=== PATIENT | male | born 1945 ===

== ENCOUNTER 2025-08-24 11:59 | Outpatient (AMB) | payer MEDICARE, OTHER, SELFPAY ==
--- NOTE | 2025-08-24 12:17 | A.OFFVIS_ITS ---
Intake Visit Reasons: 6m Allergies No Known Allergies Allergy (Verified 08/24/25 12:23) Medication List - Last Reconciled 08/24/25 by Shelly Saldana CNP allopurinol 100 mg PO DAILY folic acid 1 mg PO DAILY furosemide 20 mg PO DAILY gabapentin 300 mg PO TID gabapentin 600 mg PO TID metformin 500 mg PO BID simvastatin 20 mg PO BEDTIME HPI Comments Details: Has numbness and tingling in both legs past knees. Walking with walker, had fall about 3 weeks ago without injury. He was taking gabapentin 900mg three times a day. Ongoing hand tremors, L > R. He noticed tremors more often at night. No functional impairment, but were bothersome. No difficulty eating, drinking, or swallowing. He was on primidone in the past, but it was unclear why medication was stopped. He did not remember if medication helped. He has some trouble standing up from chairs and turning in bed. Limited ROM to L shoulder, following with orthopedics and getting injection which helps some. Numbness and tingling to legs and feet. Feet feel like wooden blocks. Balance worse at times, feet feel like wood, and does not feel the floor. Left hand tremors. His balance is worse He has a history of diabetes for 15+ years under good control who was diagnosed with neuropathy in his lower extremities and started on gabapentin 300 mg 3 times a day with some relief. He was still uncomfortable in his feet and legs with numbness, tingling, swelling, and balance is off. He has had balance problems and multiple falls. 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 Has pain in the feet 5/10. Tremors in hands, primarily on left?interfering with eating and drinking since 07/02.024 [facility] Medical History (Updated 08/24/25 @ 12:31 by Shelly Saldana CNP) Cervical stenosis of spine Hyperlipidemia Gout Diabetes Afib Essential tremor Surgical History (Updated 08/24/25 @ 12:20 by Shelly Saldana CNP) Status post total right knee replacement History of carpal tunnel surgery of right wrist S/P cardiac pacemaker procedure Review of Systems Const Denies chills, Denies daytime sleepiness, Denies difficulty sleeping, Denies fatigue, Denies fever(s), Denies frequent falls, Denies headache(s), Denies increased appetite, Denies poor appetite, Denies snoring, Denies weakness, Denies weight gain and Denies weight loss Eyes Denies loss of vision ENT Denies vertigo, Reports dizziness, Denies headache(s) and Denies neck pain Card Denies chest pain at rest, Denies chest pain with activity, Denies syncope, Denies leg edema, Denies palpitations, Denies dyspnea and Denies dyspnea on exertion Resp Denies cough, Denies dyspnea, Denies dyspnea on exertion and Denies snoring GI Denies abdominal pain, Denies constipation, Denies heartburn, Denies diarrhea and Denies nausea Denies urinary frequency, Denies urinary incontinence and Denies urinary urgency Musc Reports abnormal gait (balance difficulty), Reports back pain, Reports myalgias, Reports arthralgias, Denies neck pain, Reports numbness and Reports tingling Neuro Reports abnormal gait (balance difficulty), Denies vertigo, Reports dizziness, Denies syncope, Denies frequent falls, Denies headache(s), Denies lack of coordination, Denies loss of vision, Denies memory loss, Reports numbness, Denies Other visual disturbances, Denies restless legs, Denies seizure-like activity, Reports tingling, Denies paresthesias, Denies tremor(s) and Denies weakness Psych Denies anxiety, Denies depression, Denies auditory hallucinations, Denies memory loss and Denies visual hallucinations Endo Denies fatigue and Denies palpitations Physical Exam Const Other: General Appearance:? normal, in no acute distress. Heart:? S1, S2 normal, no murmurs. Lungs:? clear anteriorly and posteriorly. Musculoskeletal:? normal. Extremities:? no edema. Psych:? alert, oriented, cognitive function intact, cooperative with exam. Neuro Other: Abnormal Neurological Findings: Ataxic broad based gait with walker. Areflexia, absent vibration below ankle. Absent pinprick below mid mosquera. Right shoulder abduction weakness 4+/5. Limited left shoulder abduction. Mild tremor of hands on outstretched position. Mental Status: alert and oriented X 3. Normal attention, orientation, memory, and affect. Cranial Nerves: Pupils are equal, round, and reactive to light. External ocular muscles are intact. Visual sam are full, no ptosis. Face is symmetrical, no facial weakness or droop. Facial sensations are normal. Tongue protrudes in mid line. Palate elevates symmetrically. Shoulder shrugging is normal Motor Examination: As above, DTR 0+. Plantars are flexor. Sensory Exam: As above. Coordination: No ataxia. No titubation. Gait Exam: As above. Cerebellar Signs: [id number] is okay. Extrapyramidal System: Tremor as above. No rigidity with normal facial expressions. No bradykinesia. No bradyphrenia. Normal arm swing and posture. No propulsion or retropulsion. Speech: Normal. Results Reviewed Results Reviewed: 12/25/22 NCV/EMG Severe end stage right Carpal tunnel syndrome and a moderate left Carpal tunnel syndrome in the upper extremities. EMG of the right C7-T1 innervateed muscles shows no activity in the right APB muscle. Severe axonal sensory and motor peripheral neuropathy in the lower extremities. EMG of the left L4-S1 innervated muscles is consistent with neuropathic changes. 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 Control blood sugar, continue to use walker. 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 (3) Essential tremor: Code(s): G25.0 - Essential tremor Category: Medical Plan: Start primidone 50mg 1 tablet at bedtime, use/side effects reviewed. Follow up in 2 months or sooner as needed. Medications: New primidone 50 mg PO BEDTIME 90 tabs 0RF 90 days Coding Level of Care Code Est Pt Level 4 (03839) Diagnoses Diabetic polyneuropathy associated with type 2 diabetes mellitus E11.42 Diabetes mellitus type: type 2 Diabetes mellitus complication detail: diabetic polyneuropathy Cerebellar ataxia G11.9 Essential tremor G25.0
--- OUTSIDE RECORDS SUMMARY | 2025-08-24 15:58 | XMS_ITS | Encounter Summary ---
Author Organization [facility] [place] [address] Care Team Providers Care Solutions Engineer Name Role Phone Tyrel Drummond MD Primary Care Provider [phone] Encounter Details Date Type Department Care Team (Late Contact Info) Description 08/03/2025 Results Follow-Up Adult Medicine [address] [phone] Nereida Marnielli [employer] [address] [place], [place] Social History Tobacco Use Types Packs/Day Years Used Date Smoking Tobacco: Never Smokeless Tobacco: Never Alcohol Use Standard Drinks/Week Comments Yes 0 (1 standard drink = 0.6 oz pur e alcohol) Transportation Answer Date Recorded Has the lack of transportati on kept you from meetings, work, or from getting things needed for daily living? No Has the lack of transportati on kept you from medical appointments or from getting medications? No 01/12/2025 Sex and Gender Information Value Date Recorded Sex Assigned at Not on file Legal Sex Male 7:42 AM EST Gender Identity Not on file Sexual Orientation Not on file documented as of this encounter Plan of Treatment Upcoming Encounters Date Type Department Care Team (Late Contact Info) Description 09/14/2025 1:15 PM EST Office Visit Adult Medicine [address] [phone] Tyrel Drummond MD [address] [place], [place] documented as of this encounter Visit Diagnoses Not on filedocumented in this encounter Care Teams Solutions Engineer Relationship Specialty Start Date End Date Tyrel Drummond MD [address] [place] [address] PCP - General Internal Medicine 08/20/24 documented as of this encounter
--- OUTSIDE RECORDS SUMMARY | 2025-08-24 15:58 | XMS_ITS | Clinical Summary ---
Author Organization [facility] [address] [place] [address] [place] [phone] Phone Care Team Providers Care Poultry Killer Name Role Phone Tyrel Drummond MD Primary Care Provider [phone] Allergies Active Allergy Reactions Criticality Noted Date Comments Lisinopril Other 01/19/2021 Angioedema Medications CYANOCOBALAMIN , VITAMIN B-12, ORAL Take by mouth daily. Active gabapentin (NEURONTIN) 300 mg capsule TAKE 1 CAPSULE BY MOUTH 3 TIMES DAILY. TAKE IN ADDITION TO 600MG CAPSULES 270 capsule 1 12/25/19 25 Active gabapentin (NEURONTIN) 600 mg tablet TAKE 1 TABLET BY MOUTH 3 TIMES DAILY. ALONG WITH A 300MG CAPSULE FOR A TOTAL OF 900MG 270 tablet 1 12/27/19 25 Active folic acid (FOLVITE) 1 mg tablet TAKE 1 TABLET BY MOUTH EVERY DAY 90 tablet 1 12/27/19 25 Active metFORMIN (GLUCOPHAGE) 500 mg tablet TAKE 1 TABLET BY MOUTH TWICE A DAY WITH FOOD 180 tablet 1 12/25/19 25 Active simvastatin (ZOCOR) 20 mg tablet TAKE 1 TABLET BY MOUTH EVERYDAY AT BEDTIME 90 tablet 1 12/27/19 25 Active allopurinoL (ZYLOPRIM) 100 mg tablet TAKE 1 TABLET BY MOUTH EVERY DAY 90 tablet 1 03/03/20 25 Active latanoprost (XALATAN) 0.005 % ophthalmic solution LOCATION: RIGHT EYE. APPLY ONE DROP TO THE RIGHT EYE AT BEDTIME. 03/01/20 25 Active furosemide (LASIX) 20 mg tablet Take 1 tablet (20 mg total) by mouth 1 (one) time each day. 90 tablet 1 07/29/20 25 026 Active zinc oxide 20 % ointment APPLY TOPICALLY IF NEEDED FOR WOUND CARE OR DRY SKIN. 98 g 07/31/20 Active furosemide (LASIX) 20 mg tablet Take 1 tablet (20 mg total) by mouth 1 (one) time each day. 30 tablet 07/23/20 25 025 Discontinued(Re order) white petrolatum-zin c oxide cream Apply topically if needed for wound care or dry skin. 98 g 07/29/20 25 025 Discontinued Active Problems Problem Noted Date Diagnosed Date Gallstones 10/26/2021 DM (diabetes mellitus), type 2 with peripheral vascular complications ([facility] V24, [facility] V28) 01/19/2021 Alcohol dependence ([facility] V24, [facility] V28) Osteoarthritis 01/19/2021 Overview (07/30/2024): Bilateral knees and left shoulder Bilateral carpal tunnel syndrome 01/19/2021 Overview (07/30/2024): Right carpel tunnel release surgery 11/25/2019 Thenar muscle atrophy of right hand 01/19/2021 Erectile dysfunction 01/19/2021 HTN (hypertension), benign 12/30/2020 Type 2 diabetes mellitus wit h neurological manifestations, controlled ([facility] V24, [facility] V28) 12/30/2020 Diabetic neuropathy ([facility] V24, [facility] V28) 0 12/30/2020 Mixed hyperlipidemia 12/30/2020 Idiopathic gout 12/30/2020 History of atrial fibrillation Overview (11/17/2024): : Single episode 2017 no recurrence History of colonic polyps Overview (11/17/2024): colonoscopy 02/22/2021, polyps removed, recall 5 years History of kidney stones Resolved Problems Problem Noted Date Diagnosed Date Resolved Date Abnormal EKG 12/30/2020 11/20/2024 Encounters Date Type Department Care Team Description 08/03/2025 Results Follow-Up [address] [phone] Nereida Marinelli NP 07/30/2025 11:15 AM EDT - 07/30/2025 11:59 PM EDT Hospital Encounter [facility] [address] [place] [phone] Lower extremity edema Discharge Disposition: Home or Self Care 07/29/2025 11:30 AM EDT Office Visit [address] [phone] Nereida Marinelli NP Lower extremity edema (Primary Dx); Other diabetic neurological complication associated with type 2 diabetes mellitus (CMS/HCC V24, CMS/HCC V28); Fall, initial encounter; Cut of skin of right buttock 07/23/2025 Telephone Adult Medicine [address] [phone] Francheska Claudio [place] 07/16/2025 Nurse Triage [address] [phone] Tyrel Drummond MD 06/05/2025 10:30 AM EDT Office Visit Vascular Surgery [facility] [address] [place] [phone] Shandra Lopes PA Lower extremity edema (Primary Dx) 06/03/2025 11:00 AM EDT Office Visit Orthopedic Surgery [facility] [address] [place] [phone] Frank Brownlee MD Arthritis of left glenohumeral joint (Primary Dx) from Last 3 Months Immunizations Immunization Administration Dates Next Due Influenza Quadravalent, MDCK , 0.5ml, preservative free (Flucelvax) 6mo and older 11/19/2023 Influenza trivalent, 0.5mL ( Fluad) 65yo and older 07/13/2022,07/13/2021 Influenza trivalent, 0.5mL, preservative free (Fluarix; FluLaval; Fluzone) ages 6mo and older (Afluria) 3 years and older 07/14/2020 Influenza, Unspecified 07/04/2022 Moderna (age 6mo & older) Bi valent, COVID-19, 0.5 mL or 0.25 mL dosage 07/15/2022 Moderna SARS-CoV-2 COVID-19, mRNA, LNP-S, preservative free 08/18/2021,12/18/2020,11/20/2020 Pneumococcal conjugate 13 va lent (Prevnar 13, PCV13) 2mo and older 01/09/2022 Pneumococcal conjugate 20 va lent (Prevnar 20, PCV 20) 2mo and older 11/19/2023 RSV, bivalent, protein subun it RSVpreF, 0.5mL, Preservative Free (Arexvy) 50yo and older 11/10/2024 Td Tetanus diptheria (Tdvax) 7yo and older 01/09 Surgical History Surgery Date Site/Laterality Comments CARPAL TUNNEL RELEASE 11/25/2019 Right TOTAL KNEE ARTHROPLASTY Right OTHER SURGICAL HISTORY : Lithotripsy for kidney stones TONSILLECTOMY OTHER SURGICAL HISTORY Right small finger flexor tenosynovitis surgery Medical History Medical History Date Comments Diabetic neuropathy ([facility] V24, [facility] V28) 12/30/2020 DM (diabetes mellitus), type 2 with peripheral vascular complications ([facility] V24, [facility] V28) 01/19/2021 Erectile dysfunction 01/19/2021 Alcohol dependence ([facility] V24, [facility] V28) 01/19/2021 History of colonic polyps 01/19/2021 colono scopy 02/22/2021, polyps removed, recall 5 years Osteoarthritis 01/19/2021 : Bilateral knee s and left shoulder History of atrial fibrillation 01/19/2021 : Single episode 2017 no recurrence Type 2 diabetes mellitus wit h neurological manifestations, controlled ([facility] V24, [facility] V28) 12/30/2020 Mixed hyperlipidemia 12/30/2020 Idiopathic gout 12/30/2020 HTN (hypertension), benign 12/30/2020 History of kidney stones 12/30/2020 Bilateral carpal tunnel syndrome 01/19/2021 Thenar muscle atrophy of right hand 01/19/2021 Family History Medical History Relation Name Comments Diabetes Father renal failure o n dialysis Stroke Mother Relation Name Status Comments Father (Age 55) Mother (Age 48) Brain aneu rysm Social History Tobacco Use Types Packs/Day Years Used Date Smoking Tobacco: Never Smokeless Tobacco: Never Tobacco Cessation:Counseling Given: Not Answered Alcohol Use Standard Drinks/Week Comments Yes 0 [...] on file Sexual Orientation Not on file Obstetrics History Last Filed Vital Signs Vital Sign Reading Time Taken Comments Blood Pressure 126/58 07/29/2025 11:26 AM EDT Pulse 66 07/29/2025 11:26 AM EDT Temperature 36.7 C (98 F) 07/29/2025 11:26 AM EDT Respiratory Rate 15 07/29/2025 11:2 6 AM EDT Oxygen Saturation 99% 07/29/2025 11: 26 AM EDT Inhaled Oxygen Concentration - - Weight 77.9 kg (171 lb 12.8 oz) 025 11:26 AM EDT Height 182.9 cm (6') 07/29/2025 11:26 AM EDT Body Mass Index 23.3 07/29/2025 11:26 AM EDT Plan of Treatment Upcoming Encounters Date Type Department Care Team (Late st Contact Info) Description 09/14/2025 1:15 PM EST Office Visit Adult Medicine [address] [phone] Tyrel Drummond MD [address] [place] [address] Health Maintenance Due Date Last Done Comments Diabetes: Annual Foot Exam 12/05/1955 Hepatitis A Vaccines (1 of 2 - Risk 2-dose series) 12/05/1966 Zoster Vaccines (1 of 2) 12/05/1997 Hepatitis C Screening 09/09/2022 Medicare Annual Wellness Visit 09/09/2022 Depression Screening 10/01/2024 Diabetes: Annual Retina Eye Exam 10/25/2024 10/25/2023 Falls Risk Assessment 11/19/2024 11/19/2023 Diabetes: Annual Urine Albumin-Creatinine Ratio (uACR) 05/21/2025 05/21/2024 Diabetes: Blood Sugar Control Test (HGBA1C) 05/21/2025 11/21/2024, 05/20/2024, 05/20/2024 COVID-19 Vaccine ( season) 2025 06/20/2024, 07/01/2023, 07/15/2022, Additional history exists Influenza Vaccine (#1) 2025 , 07/13/2022, 07/04/2022, Additional history exists Diabetes: Annual GFR (Glomerular Filtration Rate) 11/21/2025 11/21/2024, 05/20/2024, 05/20/2024 Hypertension/CHF/CAD Annual BMP Blood Test 11/21/2025 11/21/2024, 05/20/2024, 05/20/2024 Social Influencers of Health Screening 01/12/2026 01/12/2025 Cholesterol Screening (Lipid Panel) 11/21/2029 11/21/2024, 05/20/2024, 05/20/2024 DTaP,Tdap,and Td Vaccines (2 - Td or Tdap) 01/10/2032 01/09/2022 Colorectal Cancer Screening: Colonoscopy Discontinued 02/22/2021, 06/29/2017 Pneumococcal Vaccine: 50+ Years Completed 11/19/2023, 01/09/2022 RSV Immunization Adult Patients Completed 11/10/2024 HIB Vaccines Aged Out No longer eligi ble based on patient's age to complete this topic HPV Vaccines Aged Out No longer eligi ble based on patient's age to complete this topic Hepatitis B Vaccines Aged Out No long er eligible based on patient's age to complete this topic IPV Vaccines Aged Out No longer eligi ble based on patient's age to complete this topic MMR Vaccines Aged Out No longer eligi ble based on patient's age to complete this topic Meningococcal ACWY Vaccine Aged Out N o longer eligible based on patient's age to complete this topic Meningococcal B Vaccine Aged Out No l onger eligible based on patient's age to complete this topic RSV Immunization Patients Under 20 months Aged Out No longer eligible based on patient's age to complete this topic Varicella Vaccines Aged Out No longer eligible based on patient's age to complete this topic Procedures Procedure Name Priority Date/Time Associated Diagnosis Comments VAS US DUPLEX LOWER EXT VENOUS LEFT STAT 07/30/2025 11:51 AM EDT Lower extremity edema GA ARTHROCENTESIS/ASPI RATION/INJECTION MAJOR JOINT/BURSA W/O U/S GUIDANCE Routine 06/03/2025 11:00 AM EDT Arthritis of left glenohumeral joint BASIC METABOLIC PANEL Routine 11/21/2024 11:39 AM EST Lower extremity edema HEMOGLOBIN A1C Routine 11/21/2024 11:39 AM EST DM (diabetes mellitus), type 2 with peripheral vascular complications ([facility] V24, [facility] V28) LIPID PANEL WITH REFLEX TO DIRECT LDL Routine 11/21/2024 11:39 AM EST Mixed hyperlipidemia URINE ALBUMIN CREATININE RATIO Routine 05/21/2024 FALLS RISK ASSESSMENT Routine 11/19/2023 DIABETES EYE EXAM Routine 10/25/2023 EXTERNAL COLONOSCOPY REPORT Routine 02/22/2021 10:42 AM EDT from Last 3 Months or Most Recently Relevant to Health Maintenance Results * Vascular US duplex lower extremity venous left (07/30/2025 11:51 AM EDT) Anatomical Region Laterality Modality Vascular, Abdomen Ultrasound 07/30/2025 11:5 5 AM EDT Impressions 07/30/2025 11:56 AM EDT No deep venous thrombosis in the left femoropopliteal system. -------- FINAL REPORT -------- Dictated By: Mis Lynch Dictated Date: 07/30/2025 11:55 ET Assigned Physician: Mis Lynch Reviewed and Electronically Signed By: Mis Lynch Signed Date: 07/30/2025 11:56 ET Workstation ID: [id number] Transcribed By: Self Edit Transcribed Date: 07/30/2025 11:55 ET Narrative 07/30/2025 11:56 AM EDT EXAM: Venous Doppler unilateral, left INDICATIONS: edema swelling of feet TECHNIQUE: Duplex venous evaluation of the lower extremity was performed utilizing graded compression, color and spectral Doppler interrogation. COMPARISON: None FINDINGS: There is normal morphology, compressibility, Doppler flow of the left common femoral, superficial femoral, and popliteal vein. Posterior tibial and peroneal veins demonstrate compressibility. Procedure Note Mis Lynch MD - 07/30/2025 EXAM: Venous Doppler unilateral, left INDICATIONS: edema swelling of feet TECHNIQUE: Duplex venous evaluation of the lower extremity was performedutilizing graded compression, color and spectral Doppler interrogation. COMPARISON: None FINDINGS: There is normal morphology, compressibility, Doppler flow of the leftcommon femoral, superficial femoral, and popliteal vein. Posterior tibialand peroneal veins demonstrate compressibility. IMPRESSION: No deep venous thrombosis in the left femoropopliteal system. -------- FINAL REPORT -------- Dictated By: Mis Lynch Dictated Date: 07/30/2025 11:55 ET Assigned Physician: Mis Lynch Reviewed and Electronically Signed By: Mis Lynch Signed Date: 07/30/2025 11:56 ET Workstation ID: [id number] Transcribed By: Self Edit Transcribed Date: 07/30/2025 11:55 ET us Nereida Marinelli LAW PROFESSOR CV VASCULAR PROCEDURES Final Result * GA ARTHROCENTESIS/ASPIRATION/INJECTION MAJOR JOINT/BURSA W/O U/S GUIDANCE (06/03/2025 11:00 AM EDT) Frank Aguirre MD - 06/03/2025 11:00 AM EDT Frank Brownlee MD 06/03/2025 12:39 PM L Inj/Asp: L subacromial bursa Indications: pain Details: 22 G needle, posterior approach Medications: 40 mg triamcinolone acetonide 40 mg/mL Outcome: tolerated well, no immediate complications Site was prepped in standard fashion using alcohol swab, sterile technique was used to perform the injection, the patient tolerated the procedure well and a band-aid dressing was applied Informed Consent: Site: Left subacromial Laterality: Left Relevant images/test results available and reviewed: yes Health status cleared: Yes Procedure/treatment, purpose, treatment alternatives, risks/potential complications and benefits explained: yes Risk/complications/benefits details: Risk/complications/benefits details: Risks and benefits of corticosteroid injection were discussed, including risk of pain, bleeding, infection, tissue attenuation, tendon rupture, changes in skin color, and injury to surrounding structures such as arteries, veins and nerves. We also discussed the patient may develop worsening pain for a few days before having improvement in their symptoms. Patient questions answered: yes Patient agrees, verbalizes understanding, and wants to proceed: yes Consent given by: Patient Informed consent discussion completed by Physician/PATY with patient: Verbal Pre-procedure timeout performed: yes us Frank Brownlee MD IN CLINIC/BEDSIDE ORDERABLES Fin al Result * Lipid panel with reflex to direct LDL (11/21/2024 11:39 AM EST) Cholesterol 107 0 - 200 mg/dL LAB CHEMISTRY METHOD 11/21/2024 3:10 PM [facility] Triglycerides 52 0 - 150 mg/dL LAB CHEMISTRY METHOD 11/21/2024 3:10 PM [facility] HDL 70 >=40 mg/dL LAB CHEMISTRY METHOD 11/21/2024 3:10 PM [facility] LDL Calculated 27 0 - 100 mg/dL LAB CHEMISTRY METHOD 11/21/2024 3:10 PM [facility] VLDL Cholesterol Ziyad 10.4 mg/dL LAB CHEMISTRY METHOD 11/21/2024 3:10 PM [facility] Non HDL Chol. (LDL+VLDL) 37 <145 mg/dL LAB CHEMISTRY METHOD 11/21/2024 3:10 PM [facility] Chol/HDL Ratio 1.5 0.0 - 4.4 LAB CHEMISTRY METHOD 11/21/2024 3:10 PM [facility] Blood Venous blood specimen / Unknown Venipuncture / Unknown 11/21/2024 11:39 AM EST 11/21/2024 11:39 AM EST Yusra Lopez MD LAB BLOOD ORDERABLES Final Resul t Performing Organization Address [facility]/ZIP Co de Phone Number [facility] [address] [place] [address], [place] [phone] * Hemoglobin A1c (11/21/2024 11:39 AM EST) Hemoglobin A1C 5.3 <6.5 % LAB CHEMISTRY METHOD 11/21/2024 9:01 PM [facility] Mean Bld Glu Estim. 105 mg/dL LAB CHEMISTRY METHOD 11/21/2024 9:01 PM [facility] Blood Venous blood specimen / Unknown Venipuncture / Unknown 11/21/2024 11:39 AM EST 11/21/2024 11:39 AM EST us Yusra Lopez MD LAB BLOOD ORDERABLES Final Resul t Performing Organization Address [facility]/ZIP Co de Phone Number [facility] [address] [place] [address], [place] [phone] * (ABNORMAL) Basic metabolic panel (11/21/2024 11:39 AM EST) Sodium 143 133 - 145 mmol/L LAB CHEMISTRY METHOD 11/21/2024 3:10 PM [facility] Potassium 4.6 3.5 - 5.5 mmol/L LAB CHEMISTRY METHOD 11/21/2024 3:10 PM [facility] Chloride 110 96 - 110 mmol/L LAB CHEMISTRY METHOD 11/21/2024 3:10 PM [facility] CO2 26 21 - 32 mmol/L LAB CHEMISTRY METHOD 11/21/2024 3:10 PM [facility] Anion Gap 7 3 - 11 LAB CHEMISTRY METHOD 11/21/2024 3:10 PM [facility] Glucose 102(H) 70 - 100 mg/dL LAB CHEMISTRY METHOD 11/21/2024 3:10 PM [facility] BUN 16 5 - 25 mg/dL LAB CHEMISTRY METHOD 11/21/2024 3:10 PM [facility] Creatinine 1.28 0.70 - 1.30 mg/dL LAB CHEMISTRY METHOD 11/21/2024 3:10 PM [facility] eGFR 58(L) >=60 mL/min/1. 73m2 LAB CHEMISTRY METHOD 11/21/2024 3:10 PM [facility] Comment:Calculation based on the Chronic Kidney Disease Epidemiology Collaboration (CKD-EPI) equation refit without adjustment for race. BUN/Creatinine Ratio 12.5 LAB CHEMISTRY METHOD 11/21/2024 3:10 PM [facility] Calcium 9.5 8.5 - 10.5 mg/dL LAB CHEMISTRY METHOD 11/21/2024 3:10 PM [facility] Blood Venous blood specimen / Unknown Venipuncture / Unknown 11/21/2024 11:39 AM EST 11/21/2024 11:39 AM EST us Yusra Lopez MD LAB BLOOD ORDERABLES Final Resul t [facility] [address] [place] [address], [place] [phone] * Urine Albumin Creatinine Ratio (05/21/2024) Urine Albumin Creatinine Ratio abstracted us Historical Provider HEALTH MAINTENANCE Final Result * Falls Risk Assessment (11/19/2023) Pathologist [facility] Falls Risk Assessment abstracted Historical Provider HEALTH MAINTENANCE Final Result * Hm Diabetes Eye Exam (10/25/2023) Pathologist [facility] Diabetes: Annual Retina Eye Exam abstracted Historical Provider HEALTH MAINTENANCE Final Result * External Colonoscopy Report (02/22/2021 10:42 AM EDT) Anatomical Region Laterality Modality Endoscopy Historical Provider GI~PROCEDURE ORDERABLES F inal Result from Last 3 Months or Most Recently Relevant to Health Maintenance Insurance MEDICARE [facility] Care Teams Poultry Killer Relationship Specialty Start Date End Date Tyrel Drummond MD [address] [place] [phone] PCP - General Internal Medicine 08/20/24
--- OUTSIDE RECORDS SUMMARY | 2025-08-24 15:58 | XMS_ITS ---
Author Name [facility] Organization Unknown Care Team Organization Name Specialty Phone Email Start Date End Da jhoan [facility] ACO 05/20/2025 [facility] FUNMI AGARWAL Primary Care [address]22 [facility] Termed, PROVIDER Primary Care 08/08/202205/01
== END 2025-08-24 12:43 | disposition home or self-care (01) ==
PROVIDERS: PCP Internal Medicine; Referring Provider Internal Medicine; Visit Provider Registered Nurse
DX: E11.42 Type 2 diabetes mellitus with diabetic polyneuropathy (principal); G11.9 Hereditary ataxia, unspecified; G25.0 Essential tremor
CPT/HCPCS: 99214

== ENCOUNTER → 2025-08-24 11:59 | Outpatient (BNVA) | payer MEDICARE, OTHER, SELFPAY | PROVIDERS: PCP Internal Medicine; Referring Provider Internal Medicine; Visit Provider Registered Nurse | DX: E11.42 Type 2 diabetes mellitus with diabetic polyneuropathy (principal); Z79.84 Long term (current) use of oral hypoglycemic drugs; G11.9 Hereditary ataxia, unspecified; G25.0 Essential tremor; Z95.0 Presence of cardiac pacemaker; G56.03 Carpal tunnel syndrome, bilateral upper limbs; Z91.81 History of falling | CPT/HCPCS: 99212 ==